=== PATIENT | female | born 1955 | race African-American/Black ===

== ENCOUNTER 2017-03-21 12:32 | Inpatient (IN) | payer MEDICAID ==
[~2017-03-21] VITALS: Ht 167.6 cm; Wt 68.9 kg
[2017-03-21] MEDS ORDERED: SODIUM CHLORIDE 0.9% 1,000 ML IV ONE (13:43)
[2017-03-21 14:12] LABS: CLARITY URINE CLEAR (CLEAR); COLOR URINE YELLOW (YELLOW); GLUCOSE URINE NEGATIVE (NEGATIVE); KETONES URINE NEGATIVE (NEGATIVE); LEUKOCYTE ESTERASE URINE 2+ (NEGATIVE); NITRITE URINE NEGATIVE (NEGATIVE); OCCULT BLOOD URINE 2+ (NEGATIVE); PROTEIN URINE NEGATIVE (NEGATIVE); UROBILINOGEN URINE 0.2 E.U./dL (0.2-1.0)
[2017-03-21 14:16] LABS: HEMATOCRIT. 38.3 % (36.0-48.0); MEAN CORPUSCULAR HEMOGLOBIN 30.1 pg (28.0-32.0); MEAN CORPUSCULAR VOLUME 88.5 fL (81.0-99.0); MEAN PLATELET VOLUME 8.1 fl (7.4-10.4); PLATELET 110 x1000/uL (130-400); RED BLOOD CELL COUNT 4.33 mill/uL (4.2-5.4); RED CELL DISTRIBUTION WIDTH 12.7 % (11.6-14.6)
[2017-03-21] MEDS ORDERED: ONDANSETRON HCL 4MG/2ML VIAL IV STA (14:26)
[2017-03-21] MEDS ORDERED: MORPHINE SULFATE 4 MG/ML CPJ (NOT FOR IM USE) IV STA (14:26)
[2017-03-21 14:27] LABS: CARBON DIOXIDE 25 mEq/L (21-32); CHLORIDE 108 mEq/L (98-107)
[2017-03-21] MEDS ORDERED: PIPERACILLIN/TAZ 3.375G PREMIX 50 ML IV ONE (14:30)
[2017-03-21] MEDS ORDERED: VANCOMYCIN 1 G PREMIX 200 ML IV ONE (14:30)
[2017-03-21] MEDS ORDERED: SODIUM CHLORIDE 0.9% 1000ML BAG (SEPSIS BOLUS) IV ONE (14:30)
[2017-03-21 15:13] LABS: D-DIMER 0.57 mg/L FEU (<0.50); PARTIAL THROMBOPLASTIN TIME 26.6 sec (23.4-31.0); PROTHROMBIN TIME 10.3 sec (9.4-11.6)
[2017-03-21] MEDS ORDERED: FLUCONAZOLE 100MG TABLET PO ONE (15:30)
[2017-03-21] MEDS ORDERED: ASPIRIN 81MG TABLET PO ONE (15:30)
[2017-03-21 15:34] LABS: PLATELET ESTIMATE DECREASED
[2017-03-21] MEDS ORDERED: ENOXAPARIN 80MG/0.8ML SYR SUBCUT ONE (16:45)
[2017-03-21 21:16] VITALS: BP 163/95
[2017-03-21 22:02] VITALS: BP 163/95
[2017-03-21] MEDS ORDERED: IPRATROPIUM/ALBUTEROL 0.5-3(2.5)MG/3ML NEB HHN PRN (22:30)
[2017-03-21] MEDS ORDERED: MORPHINE SULFATE 4 MG/ML CPJ (NOT FOR IM USE) IV PRN (22:30)
[2017-03-22] VITALS: BP 136/81
[2017-03-22 04:00] VITALS: BP 140/79
[2017-03-22] MEDS: ENOXAPARIN 80MG/0.8ML SYR SUBCUT SCH ×2 (06:09→17:03)
[2017-03-22 08:00] VITALS: BP 147/88
[2017-03-22 12:00] VITALS: BP 165/98
[2017-03-22 16:00] VITALS: BP 162/93
[2017-03-22] MEDS: FOLIC ACID 1MG TABLET PO SCH (17:03)
[2017-03-22] MEDS: MULTIVITAMINS,THER W-MINERALS TABLET PO SCH (17:03)
[2017-03-22] MEDS: THIAMINE HCL 100MG TABLET PO SCH (17:03)
[2017-03-22 18:24] LABS: HEPATITIS B SURFACE ANTIGEN NEGATIVE
[2017-03-22] MEDS ORDERED: ACETAMINOPHEN 325MG TABLET PO PRN (18:45)
[2017-03-22] MEDS ORDERED: CLONIDINE 0.1MG TABLET PO PRN (18:45)
[2017-03-22 18:53] LABS: HEPATITIS B CORE AB IGM NEGATIVE
[2017-03-22 18:54] LABS: HEPATITIS A AB IGM NEGATIVE (NEGATIVE)
[2017-03-22 20:00] VITALS: BP 160/97
[2017-03-22] MEDS: CHLORDIAZEPOXIDE 5 MG CAPSULE PO SCH (21:21)
[2017-03-22 21:44] LABS: *AMPHETAMINES SCREEN URINE NEGATIVE (NEGATIVE); *BARBITURATES SCREEN URINE NEGATIVE (NEGATIVE); *BENZODIAZEPINES SCREEN URINE NEGATIVE (NEGATIVE); *COCAINE SCREEN URINE PRESUMTIVE POSITIVE (NEGATIVE); CANNABINOID URINE SCREEN NEGATIVE (NEGATIVE); METHADONE URINE SCREEN NEGATIVE (NEGATIVE); OPIATES URINE SCREEN NEGATIVE (NEGATIVE); PHENCYCLIDINE URINE SCREEN NEGATIVE (NEGATIVE)
[2017-03-22] MEDS ORDERED: METOPROLOL TARTRATE 50MG TABLET PO SCH (23:00)
[2017-03-23] VITALS: BP 132/81
[2017-03-23 04:00] VITALS: BP 145/98
[2017-03-23] MEDS: ENOXAPARIN 80MG/0.8ML SYR SUBCUT SCH ×2 (05:00→17:15)
[2017-03-23] MEDS: CHLORDIAZEPOXIDE 5 MG CAPSULE PO SCH ×3 (05:00→22:26)
[2017-03-23 06:43] LABS: PROTHROMBIN TIME 10.4 sec (9.4-11.6)
[2017-03-23 06:48] LABS: HEMATOCRIT. 38.3 % (36.0-48.0); MEAN CORPUSCULAR HEMOGLOBIN 30.2 pg (28.0-32.0); MEAN CORPUSCULAR VOLUME 88.8 fL (81.0-99.0); MEAN PLATELET VOLUME 8.2 fl (7.4-10.4); PLATELET 119 x1000/uL (130-400); RED BLOOD CELL COUNT 4.31 mill/uL (4.2-5.4); RED CELL DISTRIBUTION WIDTH 12.8 % (11.6-14.6)
[2017-03-23 08:00] VITALS: BP 147/94
[2017-03-23] MEDS: FOLIC ACID 1MG TABLET PO SCH (08:32)
[2017-03-23] MEDS: AMLODIPINE 10MG TABLET PO SCH (08:32)
[2017-03-23] MEDS: MULTIVITAMINS,THER W-MINERALS TABLET PO SCH (08:32)
[2017-03-23] MEDS: THIAMINE HCL 100MG TABLET PO SCH (08:32)
[2017-03-23 12:00] VITALS: BP 154/89
[2017-03-23 16:22] VITALS: BP 129/91
[2017-03-23 18:37] LABS: PLATELET ESTIMATE DECREASED
[2017-03-23 20:00] VITALS: BP 120/79
[2017-03-24] VITALS: BP 117/80
[2017-03-24 04:00] VITALS: BP 140/94
[2017-03-24] MEDS: CHLORDIAZEPOXIDE 5 MG CAPSULE PO SCH ×2 (06:03→15:09)
[2017-03-24] MEDS: ENOXAPARIN 80MG/0.8ML SYR SUBCUT SCH (06:04)
[2017-03-24] MEDS: AMLODIPINE 10MG TABLET PO SCH (08:12)
[2017-03-24] MEDS: THIAMINE HCL 100MG TABLET PO SCH (08:12)
[2017-03-24] MEDS: MULTIVITAMINS,THER W-MINERALS TABLET PO SCH (08:12)
[2017-03-24] MEDS: FOLIC ACID 1MG TABLET PO SCH (08:12)
[2017-03-24] MEDS ORDERED: AMLO10TA80 PO (11:28)
[2017-03-24 11:57] LABS: BASOPHILS % 0.3 % (0.0-2.0); EOSINOPHILS % 2.6 % (0.0-5.0); HEMOGLOBIN. 14.1 g/dL (12.0-16.0); MEAN CORPUSCULAR HEMOGLOBIN 30.5 pg (28.0-32.0); MEAN CORPUSCULAR VOLUME 88.6 fL (81.0-99.0); MONOCYTES % 11.2 % (2.0-8.0); NEUTROPHILS % 45.9 % (40.0-76.0); PLATELET 141 x1000/uL (130-400); RED BLOOD CELL COUNT 4.62 mill/uL (4.2-5.4); RED CELL DISTRIBUTION WIDTH 12.7 % (11.6-14.6)
[2017-03-24 12:53] LABS: CARBON DIOXIDE 31 mEq/L (21-32); CHLORIDE 103 mEq/L (98-107)
[2017-03-24 15:19] VITALS: BP 133/98
== END 2017-03-24 15:45 | disposition home or self-care (01) | DRG 720 ==
LOC: ER 13:16 → 5WST 15:39 → ENRESERV 18:51
PROVIDERS: ADMIT Internal Medicine; ATTEND Internal Medicine
DX: A41.9 Sepsis, unspecified organism (principal); J96.00 Acute respiratory failure, unspecified whether with hypoxia or hypercapnia; I26.99 Other pulmonary embolism without acute cor pulmonale; D69.59 Other secondary thrombocytopenia; F20.9 Schizophrenia, unspecified; R16.1 Splenomegaly, not elsewhere classified; N39.0 Urinary tract infection, site not specified; I45.10 Unspecified right bundle-branch block; F14.10 Cocaine abuse, uncomplicated; A53.9 Syphilis, unspecified; I10 Essential (primary) hypertension; F10.239 Alcohol dependence with withdrawal, unspecified; B18.2 Chronic viral hepatitis C; F17.200 Nicotine dependence, unspecified, uncomplicated; K70.30 Alcoholic cirrhosis of liver without ascites; F12.90 Cannabis use, unspecified, uncomplicated; J20.9 Acute bronchitis, unspecified; J45.909 Unspecified asthma, uncomplicated; R79.1 Abnormal coagulation profile; Z80.0 Family history of malignant neoplasm of digestive organs; Z80.3 Family history of malignant neoplasm of breast; Z86.14 Personal history of Methicillin resistant Staphylococcus aureus infection; Z91.14 Patient's other noncompliance with medication regimen; Z87.01 Personal history of pneumonia (recurrent); T40.5X1A Poisoning by cocaine, accidental (unintentional), initial encounter
CPT/HCPCS: 36415; 71010; 71275; 78582; 80048; 80305; 81001; 83605; 84484; 85025; 85379; 85610; 85730; 86592; 86703; 86705; 86709; 86803; 87040; 87086; 87340; 93005; 93306; 93970; 94664; 96365; 96366; 96368; 96372; 96375; 99285; A9558; J1650; J2270; J2405; J2543; J3370; J7030; J7620

== ENCOUNTER 2018-06-23 14:26 | Inpatient (IN) | payer MEDICAID ==
[~2018-06-23] VITALS: Ht 165.1 cm; Wt 65.3 kg
[~2018-06-23 14:26] MED LIST: AMLO10TA80 PO
[2018-06-23] MEDS ORDERED: SODIUM CHLORIDE 0.9% 1,000 ML IV ONE (17:35)
[2018-06-23] MEDS ORDERED: ONDANSETRON HCL 4MG/2ML INJ IV STA (17:35)
[2018-06-23 18:01] LABS: CHLORIDE 108 mEq/L (98-107)
[2018-06-23 18:03] LABS: PARTIAL THROMBOPLASTIN TIME 26.1 sec (23.4-31.0); PROTHROMBIN TIME 10.2 sec (9.1-11.1)
[2018-06-23 18:04] LABS: BASOPHILS % 0.4 % (0.0-2.0); EOSINOPHILS % 1.6 % (0.0-5.0); HEMATOCRIT. 41.7 % (36.0-48.0); HEMOGLOBIN. 13.9 g/dL (12.0-16.0); LYMPHOCYTES % 35.6 % (20.0-50.0); MEAN CORPUSCULAR HEMOGLOBIN 30.4 pg (28.0-32.0); MEAN PLATELET VOLUME 8.3 fl (7.4-10.4); MONOCYTES % 7.6 % (2.0-8.0); NEUTROPHILS % 54.8 % (40.0-76.0); PLATELET 156 x1000/uL (130-400); RED BLOOD CELL COUNT 4.58 mill/uL (4.2-5.4); RED CELL DISTRIBUTION WIDTH 12.7 % (11.6-14.6)
[2018-06-23 18:07] LABS: ETHANOL BLOOD < 10 mg/dL
[2018-06-23 18:10] LABS: CREATINE KINASE 95 IU/L (26-192)
[2018-06-23 20:38] LABS: *BARBITURATES SCREEN URINE NEGATIVE (NEGATIVE)
[2018-06-23 20:39] LABS: *AMPHETAMINES SCREEN URINE NEGATIVE (NEGATIVE); *BENZODIAZEPINES SCREEN URINE NEGATIVE (NEGATIVE); *COCAINE SCREEN URINE PRESUMTIVE POSITIVE (NEGATIVE); METHADONE URINE SCREEN NEGATIVE (NEGATIVE); OPIATES URINE SCREEN NEGATIVE (NEGATIVE); PHENCYCLIDINE URINE SCREEN NEGATIVE (NEGATIVE)
[2018-06-23 20:40] LABS: CANNABINOID URINE SCREEN PRESUMTIVE POSITIVE (NEGATIVE)
[2018-06-23] MEDS ORDERED: ONDANSETRON HCL 4MG/2ML INJ IV PRN (22:00)
[2018-06-23] MEDS ORDERED: MORPHINE SULFATE 4 MG/ML CPJ (NOT FOR IM USE) IV PRN (22:00)
[2018-06-23] MEDS ORDERED: HYDROCODONE/ACETAMINOPHEN 5/325MG TABLET PO PRN (22:00)
[2018-06-23] MEDS ORDERED: CLONIDINE 0.1MG TABLET PO PRN (22:00)
[2018-06-23] MEDS ORDERED: ENOXAPARIN 40MG/0.4ML SYR SUBCUT SCH (23:00)
[2018-06-23 23:23] VITALS: BP 158/88
[2018-06-23] MEDS: SODIUM CHLORIDE 0.9% 1,000 ML IV SCH (23:28)
[2018-06-24] VITALS (7 sets, daily range): BP systolic 128–171; BP diastolic 69–97
[2018-06-24 05:06] LABS: CLARITY URINE CLOUDY (CLEAR); COLOR URINE YELLOW (YELLOW); KETONES URINE NEGATIVE (NEGATIVE); LEUKOCYTE ESTERASE URINE 1+ (NEGATIVE); NITRITE URINE NEGATIVE (NEGATIVE); OCCULT BLOOD URINE 1+ (NEGATIVE); PH URINE 5.5 (4.5-8.0); PROTEIN URINE NEGATIVE (NEGATIVE); UROBILINOGEN URINE 0.2 E.U./dL (0.2-1.0)
[2018-06-24 07:16] LABS: HEMATOCRIT. 35.8 % (36.0-48.0); MEAN CORPUSCULAR HEMOGLOBIN 30.7 pg (28.0-32.0); MEAN CORPUSCULAR VOLUME 91.2 fL (81.0-99.0); MEAN PLATELET VOLUME 8.1 fl (7.4-10.4); PLATELET 136 x1000/uL (130-400); RED BLOOD CELL COUNT 3.93 mill/uL (4.2-5.4); RED CELL DISTRIBUTION WIDTH 12.7 % (11.6-14.6)
[2018-06-24 07:45] LABS: CHLORIDE 108 mEq/L (98-107)
[2018-06-24 07:57] LABS: PHOSPHORUS 3.9 mg/dL (2.5-4.9)
[2018-06-24] MEDS ORDERED: FOLIC ACID 1MG TABLET PO SCH (09:00)
[2018-06-24] MEDS ORDERED: CEFTRIAXONE 1,000 MG in DEXTROSE 5% WATER 50 ML IV SCH (12:00)
[2018-06-24] MEDS ORDERED: CEFTRIAXONE 1 G PREMIX 50 ML IV SCH (13:00)
[2018-06-24] MEDS: SODIUM CHLORIDE 0.9% 1,000 ML IV SCH (13:12)
[2018-06-25 11:12] LABS: PLATELET ESTIMATE NORMAL
== END 2018-06-24 18:00 | disposition home or self-care (01) | DRG 816 ==
LOC: ER 14:26 → 5WST 20:58 → ENRESERV 22:04
PROVIDERS: ADMIT Internal Medicine Nephrology; ATTEND Internal Medicine Nephrology
DX: T40.5X1A Poisoning by cocaine, accidental (unintentional), initial encounter (principal); F20.9 Schizophrenia, unspecified; T40.7X1A Poisoning by cannabis (derivatives), accidental (unintentional), initial encounter; Y92.89 Other specified places as the place of occurrence of the external cause; N39.0 Urinary tract infection, site not specified; G90.8 Other disorders of autonomic nervous system; I10 Essential (primary) hypertension; Z86.711 Personal history of pulmonary embolism; F14.10 Cocaine abuse, uncomplicated
CPT/HCPCS: 36415; 70551; 71045; 80048; 80305; 82550; 83735; 83880; 84100; 84443; 84484; 93005; 96361; 96372; 96374; 99285; J0696; J1650; J2405; J7030; J7060

== ENCOUNTER 2019-08-03 05:03 | Emergency (ER) | payer MEDICAID ==
[~2019-08-03] VITALS: Ht 165.1 cm; Wt 68.0 kg
[2019-08-03 09:00] VITALS: BP 127/81
== END 2019-08-03 09:36 | disposition home or self-care (01) ==
LOC: ER 05:03
DX: R05 Cough (principal); R06.02 Shortness of breath; M54.2 Cervicalgia; J45.909 Unspecified asthma, uncomplicated; Z86.19 Personal history of other infectious and parasitic diseases
CPT/HCPCS: 71046; 87420; 87804; 99284

== ENCOUNTER 2020-04-26 15:18 | Emergency (ER) | payer MEDICAID ==
[~2020-04-26] VITALS: Ht 165.1 cm; Wt 79.0 kg
[2020-04-26] MEDS ORDERED: HYDROCODONE/ACETAMINOPHEN 5/325MG TABLET PO STA (19:44)
[2020-04-26] MEDS ORDERED: IBUPROFEN 600MG TABLET PO STA (19:44)
[2020-04-26] MEDS ORDERED: AMLODIPINE 5MG TABLET PO ONE (19:45)
[2020-04-26 21:52] LABS: BASOPHILS % 0.3 % (0.0-2.0); EOSINOPHILS % 0.4 % (0.0-5.0); HEMOGLOBIN. 15.5 g/dL (12.0-16.0); LYMPHOCYTES % 30.7 % (20.0-50.0); MEAN CORPUSCULAR HEMOGLOBIN 30.8 pg (28.0-32.0); MEAN CORPUSCULAR VOLUME 89.5 fL (81.0-99.0); MEAN PLATELET VOLUME 8.2 fl (7.4-10.4); MONOCYTES % 14.5 % (2.0-8.0); NEUTROPHILS % 54.1 % (40.0-76.0); PLATELET 179 x1000/uL (130-400); RED BLOOD CELL COUNT 5.03 mill/uL (4.2-5.4); RED CELL DISTRIBUTION WIDTH 12.4 % (11.6-14.6)
[2020-04-26 21:56] LABS: CHLORIDE 100 mEq/L (98-107)
[2020-04-26 21:57] LABS: PROTHROMBIN TIME 10.9 sec (9.6-11.0)
[2020-04-27 00:20] VITALS: BP 175/108
[2020-04-27 00:26] LABS: CLARITY URINE CLEAR (CLEAR); COLOR URINE DARK YELLOW (YELLOW); KETONES URINE TRACE (NEGATIVE); LEUKOCYTE ESTERASE URINE 1+ (NEGATIVE); NITRITE URINE NEGATIVE (NEGATIVE); OCCULT BLOOD URINE NEGATIVE (NEGATIVE); PH URINE 5.5 (4.5-8.0); PROTEIN URINE 1+ (NEGATIVE); SPECIFIC GRAVITY URINE 1.029 (1.005-1.030)
[2020-04-27] MEDS ORDERED: IBUPROFEN 600MG TABLET PO NR (00:30)
[2020-04-27] MEDS ORDERED: AMLODIPINE 5MG TABLET PO NR (00:30)
[2020-04-27] MEDS ORDERED: HYDROCODONE/ACETAMINOPHEN 5/325MG TABLET PO NR (00:30)
[2020-04-27] MEDS ORDERED: CEPHALEXIN 250MG CAPSULE PO NR (01:00)
== END 2020-04-27 02:22 | disposition home or self-care (01) ==
LOC: ER 15:18
DX: I16.0 Hypertensive urgency (principal); R74.01 Elevation of levels of liver transaminase levels; J45.909 Unspecified asthma, uncomplicated
CPT/HCPCS: 36415; 74176; 80053; 81003; 85025; 93005; 99285

== ENCOUNTER 2021-08-31 15:39 | Emergency (ER) | payer MEDICAID ==
[~2021-08-31] VITALS: Ht 165.1 cm; Wt 72.0 kg
[2021-08-31 15:48] VITALS: BP 168/101
[2021-08-31] MEDS ORDERED: DOXY100C5 MT (17:42)
[2021-08-31] MEDS ORDERED: LIDOCAINE HCL 1% 20ML VIAL (Pyxis) INJ INFIL ONE (17:45)
[2021-08-31] MEDS ORDERED: DOXYCYCLINE HYCLATE 100MG CAPSULE PO ONE (17:45)
[2021-08-31] MEDS ORDERED: CEFTRIAXONE SODIUM 500 MG/VIAL IM ONE (17:45)
[2021-09-04 04:07] LABS: NEISSERIA GONORRHOEAE NAA Negative (Negative)
== END 2021-08-31 18:00 | disposition home or self-care (01) ==
LOC: ER 15:39
DX: N89.8 Other specified noninflammatory disorders of vagina (principal); J45.909 Unspecified asthma, uncomplicated; Z86.19 Personal history of other infectious and parasitic diseases
CPT/HCPCS: 87210; 87491; 87591; 96372; 99283; J0696; J3490

== ENCOUNTER 2021-11-24 11:50 | Emergency (ER) | payer MEDICAID ==
[~2021-11-24] VITALS: Ht 165.1 cm; Wt 76.0 kg
[~2021-11-24 11:50] MED LIST changes: -AMLO10TA80 PO; +DOXY100C5 MT
[2021-11-24 12:14] VITALS: BP 144/88
[2021-11-24] MEDS ORDERED: IBUPROFEN 600MG TABLET PO STA (13:00)
[2021-11-24] MEDS ORDERED: GABA-532 PO (16:15)
[2021-11-24] MEDS ORDERED: NAPR-681 PO (16:15)
[2021-11-24] MEDS ORDERED: HYDR-4622 TP (16:16)
== END 2021-11-24 16:32 | disposition home or self-care (01) ==
LOC: ER 11:50
DX: M54.31 Sciatica, right side (principal); S80.861A Insect bite (nonvenomous), right lower leg, initial encounter; W57.XXXA Bitten or stung by nonvenomous insect and other nonvenomous arthropods, initial encounter; Y93.89 Activity, other specified; Y92.89 Other specified places as the place of occurrence of the external cause; Y99.8 Other external cause status
CPT/HCPCS: 93971; 99284

== ENCOUNTER 2022-05-05 12:34 | Emergency (ER) | payer MEDICAID ==
[~2022-05-05] VITALS: Ht 160 cm; Wt 61.0 kg
[~2022-05-05 12:34] MED LIST changes: +GABA-532 PO; +HYDR-4622 TP; +NAPR-681 PO
[2022-05-05 12:39] VITALS: BP 194/106
[2022-05-05] MEDS ORDERED: HYDROCODONE/ACETAMINOPHEN 5/325MG TABLET PO STA (13:09)
[2022-05-05] MEDS ORDERED: CEFTRIAXONE SODIUM 1 G/VIAL IM ONE (13:15)
[2022-05-05] MEDS ORDERED: LIDOCAINE HCL 1% 20ML VIAL (Pyxis) INJ INFIL ONE (13:15)
[2022-05-05] MEDS ORDERED: AMOX1TAB16 MT (17:01)
[2022-05-05] MEDS ORDERED: IBUP-2029 PO (17:01)
[2022-05-05] MEDS ORDERED: CLIN-194 MT (17:01)
== END 2022-05-05 18:29 | disposition home or self-care (01) ==
LOC: ER 12:34
DX: K02.9 Dental caries, unspecified (principal); L03.211 Cellulitis of face; K04.7 Periapical abscess without sinus; R22.1 Localized swelling, mass and lump, neck; J45.909 Unspecified asthma, uncomplicated; Z86.19 Personal history of other infectious and parasitic diseases
CPT/HCPCS: 70490; 96372; 99284; J0696

== ENCOUNTER 2022-05-07 16:35 | Emergency (ER) | payer MEDICAID ==
[~2022-05-07] VITALS: Ht 165.1 cm; Wt 78.0 kg
[~2022-05-07 16:35] MED LIST changes: +AMOX1TAB16 MT; +CLIN-194 MT; +IBUP-2029 PO
[2022-05-07 16:38] VITALS: BP 142/90
[2022-05-07] MEDS ORDERED: HYDR-4001 PO (17:09)
== END 2022-05-07 17:21 | disposition home or self-care (01) ==
LOC: ER 16:35
DX: K02.9 Dental caries, unspecified (principal)
CPT/HCPCS: 99281

== ENCOUNTER 2024-06-11 17:31 | Emergency (ER) | payer MEDICAID, MEDICARE ==
[~2024-06-11] VITALS: Ht 165.1 cm; Wt 56.0 kg
[~2024-06-11 17:31] MED LIST changes: +GABA-1180 PO; -GABA-532 PO; +HYDR-4001 PO
[2024-06-11 18:05] VITALS: O2SAT 99
[2024-06-11 21:18] LABS: BASOPHILS % 0.5 % (0.0-2.0); HEMATOCRIT. 38.3 % (36.0-48.0); HEMOGLOBIN. 12.8 g/dL (12.0-16.0); LYMPHOCYTES % 46.6 % (20.0-50.0); MEAN CORPUSCULAR HEMOGLOBIN 30.7 pg (28.0-32.0); MEAN CORPUSCULAR HGB CONC 33.3 g/dL (31.0-37.0); MEAN CORPUSCULAR VOLUME 92.2 fL (81.0-99.0); MEAN PLATELET VOLUME 8.6 fl (7.4-10.4); MONOCYTES % 9.8 % (2.0-8.0); NEUTROPHILS % 41.1 % (40.0-76.0); PLATELET 168 x1000/uL (130-400); RED BLOOD CELL COUNT 4.15 mill/uL (4.2-5.4); WHITE BLOOD COUNT 3.7 x1000/uL (4.5-11.0)
[2024-06-11 21:23] LABS: INR 0.9; PROTHROMBIN TIME 10.3 sec (9.6-11.0)
[2024-06-11 21:34] LABS: CHLORIDE 107 mEq/L (98-107); POTASSIUM 4.4 mEq/L (3.5-5.1); SODIUM 139 mEq/L (136-145)
[2024-06-11 21:35] LABS: CALCIUM 9.1 mg/dL (8.7-10.4); CARBON DIOXIDE 22 mEq/L (21-32)
[2024-06-11 21:40] LABS: CREATININE 0.8 mg/dL (0.6-1.0); GLUCOSE 97 mg/dL (70-105); UREA NITROGEN BLOOD 19 mg/dL (9-23)
[2024-06-11 21:42] LABS: ALANINE AMINOTRANSFERASE 28 IU/L (10-49); ALBUMIN 4.1 g/dL (3.2-4.8); ASPARTATE AMINOTRANSFERASE 33 IU/L (<34); BILIRUBIN DIRECT 0.1 mg/dL (<=3.0); BILIRUBIN TOTAL 0.4 mg/dL (0.1-1.0); PROTEIN TOTAL 7.1 g/dL (6.0-8.3)
[2024-06-11 22:37] LABS: TROPONIN I HIGH SENSITIVITY < 4 ng/L (3.0-34)
[2024-06-11 22:56] LABS: CLARITY URINE CLEAR (CLEAR); COLOR URINE YELLOW (YELLOW); GLUCOSE URINE NEGATIVE (NEGATIVE); KETONES URINE NEGATIVE (NEGATIVE); LEUKOCYTE ESTERASE URINE 1+ (NEGATIVE); NITRITE URINE NEGATIVE (NEGATIVE); OCCULT BLOOD URINE NEGATIVE (NEGATIVE); PROTEIN URINE NEGATIVE (NEGATIVE); UROBILINOGEN URINE 0.2 E.U./dL (0.2-1.0)
[2024-06-11 23:17] LABS: RBC URINE NONE SEEN /hpf (0-2)
[2024-06-11 23:18] LABS: BACTERIA URINE NONE SEEN; SQUAMOUS EPITHELIAL CELL URINE RARE /lpf (RARE/1+)
[2024-06-12 00:05] VITALS: BP 178/87; PULSE 78; RESP 16; TEMP 36.9; O2SAT 99
== END 2024-06-12 00:08 | disposition home or self-care (01) ==
LOC: ER 17:31
DX: H11.31 Conjunctival hemorrhage, right eye (principal); N39.0 Urinary tract infection, site not specified; I10 Essential (primary) hypertension
CPT/HCPCS: 36415; 71045; 80048; 80076; 81003; 84484; 85025; 93005; 99285